=== PATIENT | male | born 1960 | race Caucasian/White ===

== ENCOUNTER → 2023-08-27 11:53 | Outpatient (REF) | payer SELFPAY | LOC: HWRAD 11:53 | PROVIDERS: ATTENDING PHYSICIAN Internal Medicine | DX: E78.5 Hyperlipidemia, unspecified (principal) | CPT/HCPCS: 75571 ==

== ENCOUNTER → 2023-10-10 13:38 | Outpatient (REF) | payer OTHER, SELFPAY | LOC: RCS 13:38 | PROVIDERS: ATTENDING PHYSICIAN Internal Medicine | DX: R93.1 Abnormal findings on diagnostic imaging of heart and coronary circulation (principal) | CPT/HCPCS: 93017; 93005; 93350 ==

== ENCOUNTER → 2023-10-25 10:16 | Outpatient (REF) | payer OTHER, SELFPAY | LOC: HWRAD 10:16 | PROVIDERS: ATTENDING PHYSICIAN Internal Medicine | DX: R93.1 Abnormal findings on diagnostic imaging of heart and coronary circulation (principal) | CPT/HCPCS: 71275; Q9967 ==

== ENCOUNTER 2024-04-07 01:07 | Inpatient (IN) | payer OTHER, SELFPAY ==
[2024-04-06] VITALS (9 sets, daily range): BP systolic 134–170; BP diastolic 75–108; BMI 23.1
--- NOTE | 2024-04-06 19:41 | ED.GENMED ---
History of Present Illness
General
Chief Complaint: Chest Pain
Source: patient
Exam Limitations: none
Time Seen by Provider: 04/06/24 19:26
History of Present Illness
History of Present Illness:
This is a 63 year old male that comes in with c/o upper abd pain. States that he has pain in the upper abd and into the sternum. States that he had 2 normal BM's today. States that his pain is a 5-7 and comes in waves. States that it is alike a
spasm. States that this started today around 1pm. States that he is nauseated. Denies any fever, chills, chest pain, SOB, vomiting, diarrhea, headache, dizziness, urinary, burning.
Past History
Past History
ED Past Medical History: Asthma, HTN and Hypercholesterolemia
ED Past Surgical History: Other (Nasal surgery)
Social History
Tobacco: Non-smoker
Alcohol: Occasional (States that he drinks Wine on weekends)
Personal:
Living: with family
Review of Systems
Review of Systems
All Other Systems: ROS reviewed and negative except as documented in HPI and ROS
Constitutional: Reports no symptoms; Denies fever or chills
EENT: Reports no symptoms
Respiratory: Reports no symptoms; Denies cough or trouble breathing
Cardiac: Reports no symptoms; Denies chest pain
ABD/GI: Reports abdominal pain and nausea; Denies vomiting or diarrhea
: Reports no symptoms; Denies dysuria, frequency or urgency
Musculoskeletal: Reports no symptoms
Skin: Reports no symptoms
Neurological: Reports no symptoms; Denies dizzy or headache
Psychiatric: Reports no symptoms
Phy Exam
General Physical Exam
General Presentation: mild distress
General age: appears stated age
General Skin: warm and dry
General Habitus: normal
General Mental: alert
General Hydration: dry mucous membranes
ENT Exam
ENT Exam: TM's normal, pharynx normal and neck supple
Eye Exam
Eye Exam: EOMI
Cardiovascular Exam
Cardiovascular Exam: regular rate/rhythm, no edema, no murmur and normal peripheral pulses
Pulmonary Exam
Pulmonary Exam: lungs clear, no respiratory distress, no rales, chest non tender, no crackles, no rhonchi, no wheezing and no cough
Gastrointestinal Exam
Gastrointestinal Exam: normal bowel sounds, soft, no organomegaly, no pulsatile mass, non distended and tender (Upper abd tenderness with palpation)
Musculoskeletal Exam
Musculoskeletal Exam: full ROM and no edema
Skin Exam
Skin Exam: normal color, warm/dry, no rash and no petechia
Psychiatric Exam
Psychiatric Exam: normal mood/affect
Scores
Heart Score for Chest Pain Patients
STEMI patient?: Not applicable
Course
Orders/Labs/Results
Orders:
Orders
04/06/24 18:46
EKG [Electrocardiogram (*1)] Urgent
Reason for Study: Chest Pain
EKG- Treatment ONCE
04/06/24 19:39
Ketorolac [Toradol] 30 mg IV NOW STA
Ondansetron Injectable [Zofran] 4 mg IV NOW STA
Pantoprazole [Protonix IV] 40 mg IV NOW STA
US Abdomen Complete/Upper Urgent
Comment:
Reason For Exam: Upper abd tenderness with palpation
04/06/24 19:40
0.9% Sodium Chloride 500 ml [Nss] 500 ml IV BOLUS
04/06/24 19:48
Complete Blood Count/With Diff Urgent
Comprehensive Metabolic Panel Urgent
Lipase Urgent
Troponin I Urgent
04/06/24 21:06
Sucralfate Suspension [Carafate Suspension] 1 gm PO NOW STA
04/06/24 21:20
CT Abd/pel W Iv And Oral Contr Urgent
Comment:
Reason For Exam: abd pain
0.9% Sodium Chloride 500 ml [Nss] 500 ml IV BOLUS
Iohexol [Omnipaque] See Protocol PO NOW STA
04/07/24 00:14
HYDROmorphone [Dilaudid] 1 mg IV NOW STA
04/07/24 00:23
Consult Surgery [SURGICAL CONSULT] Urgent
Consulting Provider: Jm Harry
Was physician already notified: Yes
04/07/24 00:26
Lactate Level [Lactic Acid] Urgent
04/07/24 00:37
Add On- LAB Urgent
Tests Added?: lactate
04/07/24 00:52
Gastrointestinal Tubes As Directed
Type: [place] sump
To suction?: Yes
Type of suction: Low intermittent
Irrigate tube?: Yes
Irrigant: Tap Water
Frequency: Q4H
Amount in mls: 30
Irrigation Directions: Irrigate Q4H and PRN
Abnormal Lab Results
04/06/24
19:48
WBC 14.4 H 10^3/uL
(4.8-10.8)
RBC 4.54 L 10^6/uL
(4.70-6.10)
MCH 31.3 H pg
(27.0-31.0)
Abs Immat Gran (auto) 0.1 H 10^3/uL
(0-0.05)
Absolute Neuts (auto) 10.9 H 10^3/uL
(1.4-6.5)
Absolute Monos (auto) 0.7 H 10^3/uL
(0.1-0.6)
Neutrophils % 75.9 H %
(42.2-75.2)
Lymphocytes % 16.1 L %
(20.5-51.1)
BUN 23 H mg/dl
(9-20)
Glucose 102 H mg/dl
(70-99)
04/06/24 19:48
04/06/24 19:48
Leukocytosis, Dehydration. Lipase normal at 199, Troponin <0.012, Lactic acid 0.7, Glucose slightly elevated.
Vital Signs
Initial and Last Documented VS:
Initial Vital Signs
Temp Pulse Resp BP Pulse Ox
98.1 F 81 16 168/108 100
04/06/24 18:53 04/06/24 18:53 04/06/24 18:53 04/06/24 18:53 04/06/24 18:53
Last Documented Vital Signs
Temp Pulse Resp BP Pulse Ox
98.3 F 62 17 153/84 99
04/06/24 21:15 04/06/24 23:15 04/06/24 23:15 04/06/24 23:01 04/06/24 23:15
MDM/Problems Addressed
Differential Diagnosis Includes:
pancreatitis, Gastritis, Gallbladder disease
MDM/Problems Addressed:
This is a 63 year old male that comes in with c/o upper abd pain that started at 1pm today. States that the pain comes in waves.
Will check labs. US and medicate for pain.
Back into see patient. Explained that his blood work shows that his WBC are elevated and he is slightly dehydrated. US is negative for any acute process. Patient is very tender with palpation and states that he is still a 5/10. Will get CT scan.
CT cont-of ischemic complications, suggest surgical consultation. Incidental findings: Gallbladder is unremarkable. Normal appendix extending posteriorly seen best on delayed series 301 axial image 62-59. NO renal or obstructing ureteral stones. No
hydronephrosis or hydroureter.
Back into see patient. Explained that he will be admitted as his CT shows that there is a SBO. This appears to be a closed loop obstruction. Will consult surgery and hospitalist notified.
Chronic conditions affecting care:
NA
Acute Exacerbation and/or Progression of Chronic Illness:
NA
*Radiology
Radiology exam reviewed: radiology read reviewed (US-Contracted gallbladder. No evidence for cholelithiasis or bile duct dilation. CT- night [facility]- Small bowel is moderately dilated at 3cm, two adjacent transition zones identified in a short
segment of small bowel in the right upper quadrant coronal images 15-18 raising suspicion for closed ), all reviewed NAD by ED Provider (CT cont-closed obstruction possibly secondary to complex adhesions. however no prior surgery per clinician. No
evidence for Meckel's diverticulum or internal hernia as an etiology. NO definitte underlying mass. The distal small bowel and large bowel are decompressed. There is mild stranding in the) and other (CT cont-Mesentery and free fluid, which may be
related to venous congestion. NO evidence of pneumatosis, free air, or wall thickening, although no definite signs of ischemic bowel, consider correlation with lactic acid level. This is suggestive of a closed loop obstruction which has a higher )
*Pulse Oximetry
Patient hypoxic: no
*EKG
Interpreted by ED Provider?: Yes
Heart Rate: 81
Rate: normal
Rhythm: sinus
[place]: normal axis
Interval: normal interval
QRS Pattern: normal QRS
Ischemia: no ischemia
*[place] Interpretation
Rate: normal
Heart Rate: 77
Rhythm: sinus
*Critical Care Note
Total Time (30-74mins, 75-104mins- exclusive of procedures): Not Applicable
ED Attending Note
-
Portions of this chart may have been created with voice recognition software.� Occasional wrong word or��sound alike� substitutions may have occurred due to the inherent limitations of voice recognition software.
Discharge Plan
Departure
Patient Disposition: Admit
Date of Disposition: 04/07/24
Time of Disposition: 00:22
Admit to: Med/Surg
Presentation/result/management discussed w/ accepting MD/DO: Hospitalist
Patient with high blood pressure during this ER visit?: Yes
Condition: Good
Covid-19: Not Applicable
Discharge Problem:
Small bowel obstruction with closed loop
Prescriptions:
No Action
esomeprazole magnesium [Nexium] 40 MG capsule,delayed release(DR/EC)
40 mg PO DAILY
losartan 25 MG tablet
25 mg PO DAILY
finasteride [Propecia] 1 MG tablet
1 mg PO DAILY
aspirin 81 mg Tablet,Chewable
81 mg PO DAILY
rosuvastatin 20 mg Tablet
20 mg PO DAILY
Referrals:
Gallito Hill DO [Family Provider] -
Interventions
Interventions:
*Risk Screen - Suicide Last Done: 04/06/24 18:53
*General Assessment Last Done: 04/06/24 19:45
*Neglect/Abuse Screening Last Done: 04/06/24 18:53
ED- Fall Risk Assessment Last Done: 04/06/24 19:45
*ED COVID-19 Vaccine History Last Done: 04/06/24 19:45
CX-Frnqqo-Smtddykjkf Assessment Last Done: 04/06/24 19:45
ED- Cardiac Assessment Last Done: 04/06/24 19:45
Discharge Date and Time
Print Language: SLOVENIAN
[2024-04-06 20:03] LABS: % Basophils 0.8 % (0-2); % Eosinophils 1.7 % (0-6); % Immature Granulocytes 0.5 % (0-0.5); % Lymphocytes 16.1 % (20.5-51.1); % Neutrophils 75.9 % (42.2-75.2); Absolute Basophils 0.1 10^3/uL (0-0.2); Absolute Eosinophils 0.2 10^3/uL (0-0.7); Absolute Immature Granulocytes 0.1 10^3/uL (0-0.05); Absolute Lymphocytes 2.3 10^3/uL (1.2-3.4); Absolute Monocytes 0.7 10^3/uL (0.1-0.6); Absolute Neutrophils 10.9 10^3/uL (1.4-6.5); Hematocrit 41.3 % (39.0-52.0); Hemoglobin 14.2 g/dL (13.0-18.0); Mean Corp Hgb Conc. 34.4 g/dL (33.0-37.0); Mean Corpuscular Hgb 31.3 pg (27.0-31.0); Mean Platelet Volume 9.4 fL (7.4-10.4); Nucleated Red Blood Cells % 0 % (-); Platelet Count 334 10^3/uL (130-400); Red Blood Cell Count 4.54 10^6/uL (4.70-6.10); Red Cell Dist. Width 13.4 % (11.5-14.5); White Blood Cell Count 14.4 10^3/uL (4.8-10.8)
[2024-04-06] MEDS: NSS 500 IV ×2 (20:08→21:39)
[2024-04-06] MEDS: ZOFRAN 4 MG IV (20:10)
[2024-04-06] MEDS: TORADOL 30 MG IV (20:13)
[2024-04-06] MEDS: PROTONIX IV 40 MG IV (20:14)
[2024-04-06 20:23] LABS: ALT (SGPT) 26 U/L (0-50); AST (SGOT) 33 U/L (17-59); Albumin 4.9 g/dl (3.5-5.0); Alkaline Phosphatase 71 U/L (38-126); Blood Urea Nitrogen 23 mg/dl (9-20); Calcium 10.2 mg/dl (8.4-10.2); Carbon Dioxide 25 mmol/L (22-30); Chloride 103 mmol/L (98-107); Glucose 102 mg/dl (70-99); Lipase 199 U/L (23-300); Potassium 4.3 mmol/L (3.5-5.1); Sodium 141 mmol/L (135-145); Total Bilirubin 0.4 mg/dl (0.2-1.3); Total Protein 7.9 g/dl (6.3-8.2); eGFR > 60.00
[2024-04-06 20:31] LABS: Troponin I < 0.012 ng/ml
[2024-04-06] MEDS: CARAFATE SUSPENSION 1 GM PO (21:30)
[2024-04-06] MEDS: OMNIPAQUE 50 ML PO (21:32)
[2024-04-07] VITALS (13 sets, daily range): BP systolic 113–163; BP diastolic 64–90; BMI 22.9
[2024-04-07] MEDS: DILAUDID 1 MG IV (00:34)
[2024-04-07 00:48] LABS: Lactic Acid 0.7 mmol/L (0.7-2.0)
--- NOTE | 2024-04-07 01:00 | HPS.HSE ---
Family Physician
-
Family Physician: Gallito Hill
Chief Complaint
-
Abd Pain
History of Present Illness
Patient is a 63y M with PMH significant for hypertension and dyslipidemia who presents to ED complaining of abdominal pain. Patient states that he was feeling well until the sudden onset of upper abdominal pain around 1 PM today. He states that
the pain gradually increased throughout the afternoon to a peak of 8/10 severity. He had nausea but no emesis. He states that he had a normal BM at 8:30 AM today and again around 1 when the pain began. He has had no stool or flatus since that
time.
Patient noted continued progression of his discomfort and presented to the ED for further evaluation and treatment.
He denies any fevers / chills. No chest pain or dyspnea. He denies any prior history of similar symptoms.
Medical History
Past Medical History
Past Medical History: Reports Other
Additional Past Medical History:
Hypertension
Dyslipidemia
Past Surgical History: Reports Other
Additional Past Surgical History:
Septoplasty
Social History
Tobacco: Non-smoker
Alcohol: Occasional
Drug: None
Personal:
Living: With Family
Family History
Family History: Other (Mother: Longevity / CHF Father: Lung Cancer)
Allergies / Home Medications
Allergies reflects when Allergies were last updated in [facility].
Home Medications with original date entered in [facility]
Allergy/Medication List:
Allergies
Allergy/AdvReac Type Severity Reaction Status Date / Time
No Known Allergies Allergy Verified 04/06/24 18:53
Home Medications
esomeprazole magnesium 40 mg capsule,delayed release (Nexium) 40 mg PO DAILY 05/15/12
finasteride 1 mg tablet (Propecia) 1 mg PO DAILY 05/15/12
losartan 25 mg tablet 25 mg PO DAILY 05/15/12
aspirin 81 mg chewable tablet 81 mg PO DAILY 04/07/24
rosuvastatin 20 mg tablet 20 mg PO DAILY 04/07/24
Review of Systems
-
History Source: Patient
A 12 point ROS was completed and negative except as noted: Yes
Constitutional: Denies Fever or Chills
Respiratory: Denies Cough or Trouble Breathing
Cardiac: Denies Chest Pain or Palpitations
Abdomen/GI: Reports Abdominal Pain and Nausea; Denies Vomiting, Diarrhea, Constipated or Bloody Stools
: Denies Dysuria or Flank Pain
Musculoskeletal: Denies Joint Pain or Edema
Neurological: Denies Dizzy or Headache
Psych: Denies Depression or Anxiety
Physical Exam
Vital Signs
Vital Signs
Temp Pulse Resp BP Pulse Ox
98.3 F 62 17 153/84 99
04/06/24 21:15 04/06/24 23:15 04/06/24 23:15 04/06/24 23:01 04/06/24 23:15
Physical Exam
General: Other (63y M in mild distress due to abdominal pain.)
HEENT: Moist mucous membranes and PERRLA
Respiratory: Clear; No Wheezes, Rales or Rhonchi
Cardiac: S1/S2 and Regular Rhythm; No Murmur
GI: Other (Somewhat firm diffusely, pos guarding. Bowel sounds are appreciated. Tenderness in the RUQ / epigastric regions primarily - but some tenderness appreciated diffusely. No rebound.)
Musculoskeletal: No Clubbing, No Cyanosis and No Edema
Neuro: AO x 3
Laboratory Results
-
04/06/24 19:48
04/06/24 19:48
Laboratory Results
Lactic Acid 0.7 mmol/L (0.7-2.0) 04/07/24 00:26
Total Bilirubin 0.4 mg/dl (0.2-1.3) 04/06/24 19:48
AST 33 U/L (17-59) 04/06/24 19:48
ALT 26 U/L (0-50) 04/06/24 19:48
Alkaline Phosphatase 71 U/L (38-126) 04/06/24 19:48
Troponin I < 0.012 ng/ml 04/06/24 19:48
Lipase 199 U/L (23-300) 04/06/24 19:48
Impression/Plan
-
A/P: Patient is a 63y M with PMH significant for hypertension who presents to ED complaining of sudden onset of abdominal pain.
SBO
- Admit for further evaluation and treatment.
- Patient with no prior abdominal surgical history and CT findings seem most c/w closed loop obstruction.
- Nausea but no vomiting. Continued pain - improved but not resolved with meds in the ED.
- NPO, IVF support, pain control and antiemetics.
- NG decompression.
- Surgery consulted for further evaluation.
- Suspect that patient may require surgical intervention based on symptoms / imaging results.
- Follow for any new / worsening symptoms.
Benign Hypertension
- Stable. BP mildly elevated in the ED - likely due to pain.
- Hold PO medications acutely.
GERD
- Stable. Continue PPI via IV route for now.
Dyslipidemia
- Stable. Hold ASA / statin. Can resume on discharge.
DVT Prophylaxis: SCDs
Code Status: Full
--- NOTE | 2024-04-07 02:07 | CON.CRS ---
Consultation
-
Performing Provider: Jm Harry MD
Reason for Consultation: Closed-loop small bowel obstruction
Medical History
-
History of Present Illness:
63-year-old male with PMH of HTN, HLD, asthma, calcium score of 965, who presents with 1 day of progressively worsening epigastric to substernal abdominal pain. This is never happened to him before. He started noticing the pain around 1 PM. He
tried to work his way through it, but it became progressively worse over the next 5 hours. This was associated with nausea, but no vomiting. He had 2 BMs in the morning, but has not passed any flatus or BMs since the pain started. He denies any
shortness of breath or urinary complaints. His last colonoscopy was 2 years ago and had 2 small polyps removed (report not available to me). While he has been in the ED, he feels like he has gotten more bloated. He received pain medicine and his
abdominal pain is better controlled.
In the ED, his WBC 14.4, Hb 14.2, Cr 1.1, lactate 0.7, CT scan with [facility] read showing small bowel obstruction associated with 2 transition points in the right upper quadrant, concerning for closed-loop obstruction.
Past Medical History
Past Medical History: Other (As above)
Past Surgical History: Other (Nasal surgery, denies history of abdominal surgery)
Social History
Tobacco: Non-Smoker
Alcohol: Occasional
Drug: None
Personal:
Family History
Family History: Other (Mother-CHF, father-lung cancer, sister-diverticulitis)
Allergies / Home Medications
Allergy/AdvReac Type Severity Reaction Status Date / Time
No Known Allergies Allergy Verified 04/06/24 18:53
�Medication �Instructions �Recorded �Confirmed �Type
esomeprazole magnesium 40 mg 40 mg PO DAILY 05/15/12 04/07/24 History
capsule,delayed release (Nexium)
finasteride 1 mg tablet (Propecia) 1 mg PO DAILY 05/15/12 04/07/24 History
losartan 25 mg tablet 25 mg PO DAILY 05/15/12 04/07/24 History
aspirin 81 mg chewable tablet 81 mg PO DAILY 04/07/24 04/07/24 History
rosuvastatin 20 mg tablet 20 mg PO DAILY 04/07/24 04/07/24 History
Review of Systems
-
A 10 point review of systems was completed, and was negative except as per HPI.
Physical Exam
Vital Signs
Temp 98.8 F 04/07/24 01:57
Pulse 69 04/07/24 02:00
Resp Rate 16 04/07/24 02:00
Blood pressure 113/72 04/07/24 02:00
SaO2 94 04/07/24 02:00
04/05/24 04/06/24 04/07/24
06:59 06:59 06:59
Actual Weight 71 kg
Body Mass Index (BMI) 23.1
Lab Results / Allergies
04/06/24 19:48
04/06/24 19:48
WBC 14.4 10^3/uL (4.8-10.8) H 04/06/24 19:48
Hgb 14.2 g/dL (13.0-18.0) 04/06/24 19:48
Hct 41.3 % (39.0-52.0) 04/06/24 19:48
Plt Count 334 10^3/uL (130-400) 04/06/24 19:48
Abs Immat Gran (auto) 0.1 10^3/uL (0-0.05) H 04/06/24 19:48
Neutrophils % 75.9 % (42.2-75.2) H 04/06/24 19:48
Allergy/AdvReac Type Severity Reaction Status Date / Time
No Known Allergies Allergy Verified 04/06/24 18:53
Physical Exam
General: Well Developed, Well Nourished and No Apparent Distress
HEENT: Normocephalic and Atraumatic
Respiratory: Non Labored Respirations
GI: Soft, Tender (Mildly diffusely tender, moderately tender towards the right upper/epigastric region, abdominal wall musculature tense but not rigid, no rebound) and Distended (Moderately distended with tympany)
Skin: Warm and Dry
Neuro: AO x 3
Assessment / Plan
-
63-year-old male with PMH of HTN, HLD, asthma, calcium score of 965, who presents with 1 day of progressively worsening epigastric to substernal abdominal pain associated with nausea, no vomiting, no flatus or BMs since the pain started, and has
never happened before. His last colonoscopy was 2 years ago and had 2 small polyps removed (report not available to me). While he has been in the ED, he feels like he has gotten more bloated.
In the ED, his WBC 14.4, Hb 14.2, Cr 1.1, lactate 0.7, CT scan with [facility] read showing small bowel obstruction associated with 2 transition points in the right upper quadrant, concerning for closed-loop obstruction.
�SBO, concerning for closed-loop
�No prior abdominal surgeries so this is unlikely related to an adhesive SBO; concern elevated for a mass causing the obstruction as opposed to other causes such as congenital bands; based on his clinical presentation, I am concerned for impending
ischemia and therefore recommend urgent surgery
�Explained the risks benefits and alternatives to the patient, including but not limited to urgent surgery and possible small bowel resection; I explained that nonoperative measures can be considered in patients with adhesive SBOs without signs of
threatened bowel; in patients without prior surgeries and with radiographic evidence of a closed-loop, nonoperative management is unlikely to resolve the issue and may lead to further ischemic damage
�All questions were answered and the patient understood; he agreed to proceed with surgery and the consent was signed
� Keep n.p.o.; NG tube placed in the ED; follow-up CXR
� Continue IVF
�Continue pain control
� Okay for DVT PPx with Lovenox
� We will send preop EKG, type and screen and coags
� Discussed with hospitalist and ED
[2024-04-07 02:10] LABS: PT 13.5 Sec (11.4-14.6)
[2024-04-07 02:11] LABS: APTT 24.9 Sec (23.4-35.0)
[2024-04-07] MEDS: HEPARIN 5000 UNITS SC (02:28)
--- NOTE | 2024-04-07 04:49 | W.IMMPOSTOP ---
Surgical Immed Post Op Note
-
Primary Surgeon: Jm Harry MD
Assisting Surgeon: None
Pre-op Diagnosis: Closed-loop small bowel obstruction
Post-op Diagnosis: Adhesive small bowel obstruction
Procedure Performed: Exploratory laparotomy, lysis of adhesive omental band, tap block
Anesthesia Type: General
Specimen / Cultures: None
Estimated Blood Loss: 15 mL
Complications: None
Operative Findings: Small upper midline incision with Bc wound retractor; eviscerated the obstructed loop of bowel with omentum and identified an omental band to the small bowel mesentery, causing the transition point; the band was tight, likely
completely obstructing; the bowel was dark pink, no concern for ischemia or necrosis; after band was freed, 1 to 2 cm of bowel at the transition point became vasocongested, but remained dark pink and peristalsing; ran the bowel from the ligament of
Treitz to the ligament of Treves and no other transition points or pathology was identified; injected 30 mL of 0.25% Marcaine with epi mixed with 0.3 mg of dexamethasone bilaterally in the transversus abdominis plane; began closing with 0 PDS from
each corner; laid Seprafilm under the fascial incision on the abdominal contents; closed fascia in a running fashion; irrigated and injected the remainder of the 30 mL of 0.25% Marcaine with epi mixed with 0.3 mg of dexamethasone around the
incision; closed the incision with 4 Monocryl and Dermabond; NG tube remains and Rosales removed
--- NOTE | 2024-04-07 04:58 | OR.RPT ---
Operative Report
Operative Report
DATE OF OPERATION: 04/07/2024
SURGEON: Jm Harry MD
PREOPERATIVE DIAGNOSIS: Closed-loop small bowel obstruction
POSTOPERATIVE DIAGNOSIS: Adhesive small bowel obstruction
OPERATION: Exploratory laparotomy, lysis of adhesive omental band, TAP block
ASSISTANTS:
1. None
ANESTHESIA: General
ESTIMATED BLOOD LOSS: 15 mL
UOP: 100 mL
IVF: 900 mL
FINDINGS:
1. Adhesive band from omentum to mesentery of mid jejunum causing a transition point across a loop of jejunum; bowel well-perfused
2. After lysis of adhesive band, bowel remained well- perfused
SPECIMENS:
1. None
DRAINS: None
COMPLICATIONS: No immediate complications.
INDICATIONS: The patient is a 63-year-old male who presents with 6 hours of worsening mid to epigastric abdominal pain associated with nausea and obstipation. His WBC was [address] scan showed concern of SBO with closed-loop in the right upper
quadrant. As he had never had abdominal surgery and clinically he had a complete obstruction, I recommended moving forward with surgery. The operation was discussed with the patient in detail, including risks, benefits and alternatives. My plan is
to explore the abdomen, identify the site of obstruction and do what is necessary to relieve the obstruction, such as lysis of adhesions or small bowel resection. If an adhesions is released, I will assess the bowel to see if it is healthy or if it
requires a bowel resection. Risks described included, but are not limited to, bleeding, infection, anastomotic leak or stricture (if anastomosis created), damage to nearby structures, need for a second surgery, possible ostomy and anesthetic risks.
The patient understood and agreed to proceed.
PROCEDURE IN DETAIL: The patient was taken to the operating room and placed on the operating table in supine position. Sequential compression devices were placed bilaterally. General anesthesia was then induced and the patient was intubated without
complication. Both arms were secured to the armboards in extended position. Ramesh catheter was placed with sterile technique. The abdomen was then shaved, prepped and draped in a sterile fashion. A time-out was then performed verifying the correct
patient, procedure, operative site, positioning, and special equipment. An NG tube was already in place. Preoperative Ancef and Flagyl and 5000 units of subQ heparin were given. A marking pen was used to baylee out the midline.
Using a 15 blade scalpel, a midline incision was made from 2 cm below the xiphoid to just above the umbilicus. This was taken down to the level of the fascia with Bovie electrocautery and hemostasis was assured. The linea alba was divided carefully
with Bovie electrocautery. Then 2 Kellys were used to grasp and elevate the peritoneum, which was sharply divided with Metzenbaum scissors, ensuring no peritoneal organs were in the vicinity. I extended the fascial incision to the length of the
skin incision. A large Bc wound protector was placed. The abdomen was explored. A palpable adhesive band was noted in the right upper quadrant. The band was directed towards the omentum. The bowel was eviscerated for closer evaluation. I
noted an omental band wrapping around a loop of jejunum, adherent to the mesentery of the jejunum at the mesenteric border of the bowel. This band was causing a transition point with proximally dilated bowel and collapsed distal bowel. The bowel
appeared well-perfused without any evidence of ischemia or necrosis. I placed a 3-0 Vicryl stitch a few centimeters from the band as a tag. I then eviscerated a portion of the transverse colon and omentum to confirm that this band was originating
from the omentum and no other location, which was confirmed. I divided the band using electrocautery. Once the band was released, the bowel remained well-perfused. There was no palpable mass at this point. I did note a dark pink appearance to
the bowel at the site where the band was, but the bowel was noted to be peristalsing and had palpable mesenteric pulses. I then ran the bowel from the ligament of Treitz to the ligament of Treves. Overall, the proximal bowel was only mildly
dilated. The entire length of the bowel had no evidence of ischemia or injury. Due to the location of my midline incision, the terminal end of the small bowel was unable to be eviscerated, but I was able to view the length of the bowel using
retractors and palpate the bowel up to the cecum. Therefore, I was not concerned for any additional small bowel pathology causing his symptoms. I removed the 3-0 Vicryl stitch tag. The site of obstruction was assessed closely once more and appeared
perfused.
I began closing using 0 PDS sutures starting at the corners. Prior to closure, I injected 15 mL of 0.25% Marcaine with epi mixed with 0.3 mg of dexamethasone in the transversus abdominis plane bilaterally under direct visualization. I also placed
Seprafilm under the fascial incision. Once the fascia was closed, I irrigated the subcutaneous space and assured hemostasis. I closed the skin using 4-0 Monocryl in a running subcuticular fashion and dressed with Dermabond.
At this point, the procedure was complete. The patient was awoken and extubated without complication. The ramesh was removed. All needle, sponge and instrument counts were reported as correct. The patient tolerated the procedure well and was
transferred to the recovery room in stable condition with the nasogastric tube in place.
DICTATED BY: Jm Harry MD
[2024-04-07] MEDS: TORADOL 15 MG IV ×4 (05:57→22:31)
[2024-04-07] MEDS: D5LR 1000 IV ×2 (05:57→22:31)
--- NOTE | 2024-04-07 07:34 | W.PN.HOSP.TC ---
Today's Communication/Plan
-
Surgery this morning
Patient doing fine
Continue DVT prophylaxis
NPO
NG tube
Assessment / Plan
Assessment / Plan
Physical Exam
General: Not in acute distress
HEENT: Moist mucous membranes
Respiratory: Clear to Auscultation Bilaterally
Cardiac: S1/S2 and Regular Rhythm
GI: Surgical sutures C/D/I. Mild tenderness to palpation. Hypoactive bowel sounds.
Musculoskeletal: No Cyanosis and No Edema
Neuro: AO x 3
Assessment/Plan
Patient is a 63y M with PMH significant for hypertension who presents to ED complaining of sudden onset of abdominal pain.
Closed-loop small bowel obstruction status post exploratory laparotomy, lysis of adhesive omental band, tap block on 04/07/24
Nausea- RESOLVED
- Patient with no prior abdominal surgical history and CT findings seem most c/w closed loop obstruction.
- NPO, IVF support, pain control and antiemetics.
- NG decompression.
- Surgery consulted, performed surgery shortly after admission given concern for ischemia
Benign Hypertension
- Stable. BP mildly elevated in the ED - likely due to pain.
- Hold PO medications acutely.
GERD
- Stable. Continue PPI via IV route for now.
Dyslipidemia
- Stable. Hold ASA / statin. Can resume on discharge.
DVT Prophylaxis: Lovenox and SCDs.
Code Status: Full
This is a non-billable note.
Anticipated Discharge: > 48 hours
Subjective/Interval History
-
Date of Service: April 07, 2024
Patient was seen and examined. He reported feeling fine, except for some abdominal soreness as expected from surgery.
Objective Data
-
Labs:
Laboratory Results
04/06/24 04/07/24 04/07/24
19:48 01:53 07:29
WBC 14.4 H Pending
Hgb 14.2 Pending
Hct 41.3 Pending
Plt Count 334 Pending
PT 13.5
INR 1.00
APTT 24.9
Sodium 141 Pending
Potassium 4.3 Pending
Chloride 103 Pending
Carbon Dioxide 25 Pending
BUN 23 H Pending
Creatinine 1.1 Pending
Glucose 102 H Pending
Calcium 10.2 Pending
Total Bilirubin 0.4
AST 33
ALT 26
Alkaline Phosphatase 71
Vital Signs:
Vital Signs
Temp Pulse Resp BP Pulse Ox
97.7 F 93 22 143/74 97
04/07/24 06:30 04/07/24 06:30 04/07/24 06:30 04/07/24 06:30 04/07/24 06:47
I&O
04/06/24 04/07/24 04/08/24
06:59 06:59 06:59
Intake Total 100 / 100
Output Total 5 / 5
Balance 95 / 95
[2024-04-07 07:57] LABS: Lactic Acid 0.9 mmol/L (0.7-2.0)
[2024-04-07 08:45] LABS: Hematocrit 38.1 % (39.0-52.0); Mean Corp Hgb Conc. 34.1 g/dL (33.0-37.0); Mean Corpuscular Hgb 32.2 pg (27.0-31.0); Mean Corpuscular Volume 94.3 fL (80.0-94.0); Mean Platelet Volume 10.4 fL (7.4-10.4); Platelet Count 310 10^3/uL (130-400); Red Blood Cell Count 4.04 10^6/uL (4.70-6.10); Red Cell Dist. Width 13.6 % (11.5-14.5); White Blood Cell Count 19.6 10^3/uL (4.8-10.8)
[2024-04-07 09:27] LABS: Blood Urea Nitrogen 19 mg/dl (9-20); Calcium 9.1 mg/dl (8.4-10.2); Carbon Dioxide 23 mmol/L (22-30); Chloride 102 mmol/L (98-107); Estimated Creatinine Clearance 85 ml/min; Glucose 148 mg/dl (70-99); Magnesium 1.9 mg/dl (1.6-2.3); Potassium 3.8 mmol/L (3.5-5.1); Sodium 140 mmol/L (135-145); eGFR > 60.00
[2024-04-07 10:10] LABS: Hepatitis C Antibody Negative (Negative)
[2024-04-07] MEDS: PROTONIX IV 40 MG IV (10:31)
--- NOTE | 2024-04-07 12:12 | CM ---
Adm dx - SBO
Met with pt and his at bedside
Pt reports he lives with his and his mother in a multi-level home; 3 steps to enter, 15 steps to 2nd fl. Full bath on FF. 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
Independent, self-employed, drives
DME - rolling walker, single point cane
SNF/HH - no past hx
Has ride at discharge
PCP - [facility]
Pharm - [facility]
Plan - anticipate home no needs vs with VN when medically ready
--- NOTE | 2024-04-07 14:31 | PTCARENOTE ---
Patient OOb to chair with min assist. Patient ambulated in halls with steady gait, no c/o abdominal pain at present. Patient c/o sore throat from NGT, ice chips given.
[2024-04-07] MEDS: LOVENOX 40 MG SC (17:36)
--- NOTE | 2024-04-07 23:06 | PTCARENOTE ---
@ this time pt was observed to have chills and sweats VSS temp 98.5. Pt reported he has been sleeping and doesn't know when it began. Pt assisted with change of clothes and assisted with repositioning for comfort. Denies SOB or increase in any pain,
reports passing flatus, NG tube patent and flushed without difficulty plan of care ongoing callbell within reach
--- NOTE | 2024-04-08 02:44 | PTCARENOTE ---
Pt resting comfortably denies any further fever/chills/sweats.
[2024-04-08 04:00] VITALS: BP 140/80
[2024-04-08 04:38] VITALS: BMI 23.0
[2024-04-08] MEDS: TORADOL 15 MG IV ×4 (05:19→23:09)
[2024-04-08 05:30] LABS: % Basophils 0.4 % (0-2); % Eosinophils 0.4 % (0-6); % Immature Granulocytes 0.4 % (0-0.5); % Lymphocytes 16.3 % (20.5-51.1); % Monocytes 7.7 % (1.7-9.3); % Neutrophils 74.8 % (42.2-75.2); Absolute Basophils 0.1 10^3/uL (0-0.2); Absolute Eosinophils 0.1 10^3/uL (0-0.7); Absolute Immature Granulocytes 0.1 10^3/uL (0-0.05); Absolute Lymphocytes 2.2 10^3/uL (1.2-3.4); Absolute Monocytes 1.1 10^3/uL (0.1-0.6); Absolute Neutrophils 10.3 10^3/uL (1.4-6.5); Hematocrit 34.2 % (39.0-52.0); Hemoglobin 11.6 g/dL (13.0-18.0); Mean Corp Hgb Conc. 33.9 g/dL (33.0-37.0); Mean Corpuscular Hgb 32.1 pg (27.0-31.0); Mean Corpuscular Volume 94.7 fL (80.0-94.0); Mean Platelet Volume 10.4 fL (7.4-10.4); Nucleated Red Blood Cells % 0.1 % (-); Platelet Count 289 10^3/uL (130-400); Red Blood Cell Count 3.61 10^6/uL (4.70-6.10); Red Cell Dist. Width 13.7 % (11.5-14.5); White Blood Cell Count 13.8 10^3/uL (4.8-10.8)
[2024-04-08 05:48] LABS: Blood Urea Nitrogen 18 mg/dl (9-20); Calcium 8.9 mg/dl (8.4-10.2); Carbon Dioxide 29 mmol/L (22-30); Chloride 105 mmol/L (98-107); Estimated Creatinine Clearance 85 ml/min; Glucose 109 mg/dl (70-99); Magnesium 2.2 mg/dl (1.6-2.3); Potassium 4.1 mmol/L (3.5-5.1); Sodium 142 mmol/L (135-145); eGFR > 60.00
[2024-04-08 07:26] VITALS: BP 128/70
--- NOTE | 2024-04-08 07:54 | W.PN.HOSP.TC ---
Today's Communication/Plan
-
Continue NPO, IV fluids, NG tube
Assessment / Plan
Assessment / Plan
Physical Exam
General: Not in acute distress
HEENT: Moist mucous membranes
Respiratory: Clear to Auscultation Bilaterally
Cardiac: S1/S2 and Regular Rhythm
GI: Surgical sutures C/D/I. Mild tenderness to palpation. Hypoactive bowel sounds.
Musculoskeletal: No Cyanosis and No Edema
Neuro: AO x 3
Assessment/Plan
Patient is a 63y M with PMH significant for hypertension who presents to ED complaining of sudden onset of abdominal pain.
Closed-loop small bowel obstruction status post exploratory laparotomy, lysis of adhesive omental band, tap block on 04/07/24
Nausea- RESOLVED
- Patient with no prior abdominal surgical history and CT findings seem most c/w closed loop obstruction.
- NPO, IV fluids, pain control and antiemetics.
- NG decompression.
- Surgery consulted, performed surgery shortly after admission given concern for ischemia
Chills/Sweats - RESOLVED
- Brief episode overnight
- No signs or symptoms of pneumonia/UTI
- Continue to monitor
Benign Hypertension
- Stable. BP mildly elevated in the ED - likely due to pain.
- Hold PO medications acutely.
GERD
- Stable. Continue PPI via IV route for now.
Dyslipidemia
- Stable. Hold ASA / statin. Can resume on discharge.
DVT Prophylaxis: Lovenox and SCDs.
Code Status: Full Code
Anticipated Discharge: > 48 hours
Subjective/Interval History
-
Date of Service: April 08, 2024
Patient was seen and examined. Overnight, he had some chills and sweats which resolved. No fever.
Objective Data
-
Labs:
Laboratory Results
04/08/24
04:41
WBC 13.8 H
Hgb 11.6 L
Hct 34.2 L
Plt Count 289
Sodium 142
Potassium 4.1
Chloride 105
Carbon Dioxide 29
BUN 18
Creatinine 0.9
Glucose 109 H
Calcium 8.9
Vital Signs:
Vital Signs
Temp Pulse Resp BP Pulse Ox
98.5 F 79 20 140/80 98
04/08/24 04:00 04/08/24 04:00 04/08/24 04:00 04/08/24 04:00 04/08/24 04:00
I&O
04/07/24 04/08/24 04/09/24
06:59 06:59 06:59
Intake Total 100 / 100 1470 / 1470
Output Total / 1950 / 1950
Balance 95 / 95 -480 / -480
[2024-04-08] MEDS: D5LR 1000 IV ×2 (08:55→17:47)
[2024-04-08] MEDS: PROTONIX IV 40 MG IV (08:56)
[2024-04-08] MEDS: NSS (PRESERVATIVE FREE) 10 ML IV (08:56)
--- NOTE | 2024-04-08 10:30 | W.PN.CRS1 ---
Today's Communication / Plan
-
continue NGT/IVFs today
Assessment/Plan
-
POD#1 Exploratory laparotomy, lysis of adhesive omental band, tap block
WBC: 13.8 (19.6), Hgb 11.6 (13.0)
-Vitals normal
-Continue NGT today with IVFs
-OOB
-Lovenox for DVT prophylaxis, TEDs/SCDs in place
-Holding po meds for now
-OR pathology pending
-Pain medication: Toradol standing, Dilaudid PRN
Subjective Data
Subjective Data
Date of Service: April 08, 2024
Patient states he feels 'okay'. He has flatus. He is urinating. He has been walking the halls.
Objective Data
-
Vital Signs
Temp Pulse Resp BP Pulse Ox
97.7 F 74 16 128/70 98
04/08/24 07:26 04/08/24 07:26 04/08/24 07:26 04/08/24 07:26 04/08/24 07:26
Intake & Output
04/07/24 04/08/24 04/09/24
06:59 06:59 06:59
Intake Total 100 / 100 1470 / 1470
Output Total 5 / 5 1950 / 1950
Balance 95 / 95 -480 / -480
Intake:
Oral fluids 180 / 180
IV fluids (Total) 100 / 100 1200 / 1200
Normosol 100 / 100
Amount instilled into GI Tube ( 0 / 0 90 / 90
Total)
[place] Sump 0 / 0 90 / 90
Output:
Gastrointestinal tube output ( 5 / 5 300 / 300
Total)
[place] Sump 5 / 5 300 / 300
Urine, Voided 1650 / 1650
Other:
Number of approximated MODERATE 2
amounts of urine
Lab Results
04/08/24 04:41
04/08/24 04:41
Physical Exam
-
General: No Acute Distress and AOx3
Abdomen: Soft, Non Distended and Non Tender
Skin: Warm and Dry
Incision: Clear, Dry, Intact
[2024-04-08 11:21] VITALS: BP 146/84
--- NOTE | 2024-04-08 14:35 | CM ---
Chart reviewed
Continue NGT, IVF's
Pt ambulating in burgos
CM will cont to follow for discharge needs
Plan - anticipate home no needs
[2024-04-08 15:36] VITALS: BP 147/84
[2024-04-08] MEDS: LOVENOX 40 MG SC (17:44)
[2024-04-08 19:38] VITALS: BP 153/83
[2024-04-08 23:13] VITALS: BP 149/82
[2024-04-09 04:00] VITALS: BP 142/86
[2024-04-09] MEDS: TORADOL 15 MG IV ×4 (04:18→22:21)
[2024-04-09 05:35] VITALS: BMI 22.8
[2024-04-09 05:45] LABS: % Basophils 0.9 % (0-2); % Eosinophils 2.8 % (0-6); % Immature Granulocytes 0.5 % (0-0.5); % Lymphocytes 38.3 % (20.5-51.1); % Neutrophils 49.5 % (42.2-75.2); Absolute Basophils 0.1 10^3/uL (0-0.2); Absolute Eosinophils 0.3 10^3/uL (0-0.7); Absolute Lymphocytes 3.4 10^3/uL (1.2-3.4); Absolute Monocytes 0.7 10^3/uL (0.1-0.6); Absolute Neutrophils 4.4 10^3/uL (1.4-6.5); Hematocrit 37.3 % (39.0-52.0); Hemoglobin 11.8 g/dL (13.0-18.0); Mean Corp Hgb Conc. 31.6 g/dL (33.0-37.0); Mean Corpuscular Hgb 31.1 pg (27.0-31.0); Mean Corpuscular Volume 98.4 fL (80.0-94.0); Mean Platelet Volume 10.2 fL (7.4-10.4); Nucleated Red Blood Cells % 0 % (-); Platelet Count 328 10^3/uL (130-400); Red Blood Cell Count 3.79 10^6/uL (4.70-6.10); Red Cell Dist. Width 13.8 % (11.5-14.5); White Blood Cell Count 8.8 10^3/uL (4.8-10.8)
[2024-04-09 06:03] LABS: Blood Urea Nitrogen 14 mg/dl (9-20); Calcium 9.2 mg/dl (8.4-10.2); Carbon Dioxide 30 mmol/L (22-30); Chloride 103 mmol/L (98-107); Estimated Creatinine Clearance 84 ml/min; Glucose 80 mg/dl (70-99); Potassium 4.2 mmol/L (3.5-5.1); Sodium 144 mmol/L (135-145); eGFR > 60.00
[2024-04-09] MEDS: D5LR 1000 IV ×2 (06:05→16:30)
--- NOTE | 2024-04-09 07:27 | W.PN.HOSP.TC ---
Today's Communication/Plan
-
Clear Liquids Diet
Appreciate Surgery
Assessment / Plan
Assessment / Plan
Physical Exam
General: Not in acute distress
HEENT: Moist mucous membranes
Respiratory: Clear to Auscultation Bilaterally
Cardiac: S1/S2 and Regular Rhythm
GI: Surgical sutures C/D/I. Mild tenderness to palpation. Bowel sounds present.
Musculoskeletal: No Cyanosis and No Edema
Neuro: AO x 3
Assessment/Plan
Patient is a 63 y/o male with past medical history significant for hypertension who presents to ED complaining of sudden onset of abdominal pain.
Closed-loop small bowel obstruction status post exploratory laparotomy, lysis of adhesive omental band, tap block on 04/07/24
Nausea- RESOLVED
- Patient with no prior abdominal surgical history and CT findings seem most c/w closed loop obstruction.
- NPO advanced to clear liquids, IV fluids, pain control and antiemetics.
- NG decompression and removal as per surgery
- Surgery consulted, performed surgery shortly after admission given concern for ischemia
Chills/Sweats - RESOLVED
- Brief episode overnight 04/07 to 04/08
- No signs or symptoms of pneumonia/UTI
- Continue to monitor
Benign Hypertension
- Stable. BP mildly elevated in the ED - likely due to pain.
- Hold PO medications acutely.
GERD
- Stable. Continue PPI via IV route for now.
Dyslipidemia
- Stable. Hold ASA / statin. Can resume on discharge.
DVT Prophylaxis: Lovenox and SCDs.
Code Status: Full Code
Anticipated Discharge: 24 - 48 hours
Subjective/Interval History
-
Date of Service: April 09, 2024
Patient was seen and examined. He denied any complaints or symptoms overnight.
Objective Data
-
Labs:
Laboratory Results
04/09/24
04:52
WBC 8.8
Hgb 11.8 L
Hct 37.3 L
Plt Count 328
Sodium 144
Potassium 4.2
Chloride 103
Carbon Dioxide 30
BUN 14
Creatinine 0.9
Glucose 80
Calcium 9.2
Vital Signs:
Vital Signs
Temp Pulse Resp BP Pulse Ox
98.0 F 69 18 142/86 98
04/09/24 04:00 04/09/24 04:00 04/09/24 04:00 04/09/24 04:00 04/09/24 04:00
I&O
04/08/24 04/09/24 04/10/24
06:59 06:59 06:59
Intake Total 1470 / 1470 2700 / 2700
Output Total 1950 / 1950 600 / 600
Balance -480 / -480 2099 / 2099
[2024-04-09 07:30] VITALS: BP 144/85
[2024-04-09] MEDS: NSS (PRESERVATIVE FREE) 10 ML IV (08:45)
[2024-04-09] MEDS: PROTONIX IV 40 MG IV (08:45)
[2024-04-09] MEDS: D5LR IV (08:56)
--- NOTE | 2024-04-09 10:14 | W.PN.CRS1 ---
Today's Communication / Plan
-
NG tube clamping trial
Assessment/Plan
-
POD#2 Exploratory laparotomy, lysis of adhesive omental band, tap block
WBC: 8.8 (13.8), Hgb 11.8 (11.6)
-Vitals normal
-NGT clamping trial
-Clears if NG tube removed
-OOB
-Lovenox for DVT prophylaxis, TEDs/SCDs in place
-Holding po meds for now
-OR pathology pending
-Pain medication: Toradol standing, Dilaudid PRN
Subjective Data
Subjective Data
Date of Service: April 09, 2024
Patient states he feels well today. He has been walking around. He has gas. He is very hungry. His pain is controlled.
Objective Data
-
Vital Signs
Temp Pulse Resp BP Pulse Ox
98.4 F 65 18 144/85 97
04/09/24 07:30 04/09/24 07:30 04/09/24 07:30 04/09/24 07:30 04/09/24 08:00
Intake & Output
04/08/24 04/09/24 04/10/24
06:59 06:59 06:59
Intake Total 1470 / 1470 2700 / 2700
Output Total 1950 / 1950 600 / 600
Balance -480 / -480 2100 / 2100
Intake:
Oral fluids 180 / 180 0 / 0
IV fluids (Total) 1200 / 1200 2400 / 2400
IV piggybacks 0 / 0
Amount instilled into GI Tube ( 90 / 90 300 / 300
Total)
[place] Sump 90 / 90 300 / 300
Output:
Gastrointestinal tube output ( 300 / 300 300 / 300
Total)
[place] Sump 300 / 300 300 / 300
Urine, Voided 1650 / 1650 300 / 300
Other:
Number of approximated MODERATE 2
amounts of urine
Number of approximated LARGE 2
amounts of urine
Lab Results
04/09/24 04:52
04/09/24 04:52
Physical Exam
-
General: No Acute Distress and AOx3
Abdomen: Soft, Non Distended and Non Tender
Skin: Warm and Dry
Incision: Clear, Dry, Intact
[2024-04-09 11:30] VITALS: BP 159/76
--- NOTE | 2024-04-09 12:13 | CM ---
Chart reviewed
NGT clamped today
Poss clears today
Ambulating in burgos
CM remains available for discharge needs
Plan - anticipate home no needs
--- NOTE | 2024-04-09 13:12 | PTCARENOTE ---
NGT removed, patient tolerated well. Advanced to clear liquid diet. Care ongoing.
[2024-04-09 15:30] VITALS: BP 140/84
--- NOTE | 2024-04-09 15:44 | PN.CDI ---
CDI
- -
CDI:
Physician Documentation Request
Admit Date: 04/07/24 01:07
Dear Doctor Milena,
Clinical Indicators:
Patient admitted with closed-loop small bowel obstruction; s/p exploratory laparotomy, lysis of adhesive omental band 04/07.
WBC trend:
04/06/24 04/07/24 04/08/24
19:48 07:29 04:41
WBC 14.4 H 19.6 H 13.8 H
HR trend:
04/07/24
04:46 04/07/24
05:00 04/07/24
05:15
Pulse 100 93 93
04/07/24
06:30 04/07/24
07:34 04/07/24
11:30
Pulse 93 90 94
Please clarify which most accurately describes the patient:
SIRS due to a non-infectious source (please indicate the known or suspected etiology)
Criteria includes:
Fever > 100.4 degrees F or hypothermia < 96.8 degrees F
Leukocytosis - WBC > 12,000 or leukopenia, WBC < 4,000 or > 10% bands
Tachycardia - > 90 beats per minute
Tachypnea - RR > 20 breaths per minute or PaCO2 < 32 mmHg
Source: Merck Manual 2013
Elevated WBC/Tachycardia only
Other
Use of terms such as suspected, likely, concern for, or probable (associated with a specific diagnosis that is being evaluated, monitored, or treated as if it exists) are acceptable and can be coded in the inpatient setting, when documented at the
time of discharge.
Thank you,
Shruti Brown RN BSN
CDI Specialist
available via tiger text
Please use your independent medical judgment in providing your response.
--- NOTE | 2024-04-09 15:56 | PN.CDI ---
CDI
- -
CDI:
Physician Documentation Request
Admit Date: 04/07/24 01:07
Dear Doctor Milena,
Clinical Indicators:
Patient admitted with closed-loop small bowel obstruction; s/p exploratory laparotomy, lysis of adhesive omental band 04/07.
Anesthesia Report: EBL 15ml IVF [address] 5LR @ 100 ml/hr
Hgb/Hct trend:
04/06/24 04/08/24 04/09/24
19:48 04:41 04:52
Hgb 14.2 11.6 L 11.8 L
Hct 41.3 34.2 L 37.3 L
Based on the above, could you clarify in the progress notes, the appropriate diagnosis, if significant, that supports the above abnormalities and additional evaluation, monitoring and/or treatment rendered:
Anemia, multifactorial due to acute blood loss and hemodilution
Anemia due to hemodilution only
Abnormal lab values, clinically insignificant
Other
Use of terms such as suspected, likely, concern for, or probable (associated with a specific diagnosis that is being evaluated, monitored, or treated as if it exists) are acceptable and can be coded in the inpatient setting, when documented at the
time of discharge.
Thank you,
Shruti Brown RN BSN
CDI Specialist
available via tiger text
Please use your independent medical judgment in providing your response.
[2024-04-09] MEDS: LOVENOX 40 MG SC (17:29)
[2024-04-09 19:42] VITALS: BP 120/63
[2024-04-09 23:47] VITALS: BP 143/82
[2024-04-10 03:37] VITALS: BP 128/79
[2024-04-10] MEDS: TORADOL 15 MG IV ×4 (05:06→22:22)
[2024-04-10 06:38] LABS: % Basophils 0.9 % (0-2); % Eosinophils 4.5 % (0-6); % Immature Granulocytes 0.3 % (0-0.5); % Lymphocytes 32.5 % (20.5-51.1); % Monocytes 7.2 % (1.7-9.3); % Neutrophils 54.6 % (42.2-75.2); Absolute Basophils 0.1 10^3/uL (0-0.2); Absolute Eosinophils 0.3 10^3/uL (0-0.7); Absolute Lymphocytes 2.5 10^3/uL (1.2-3.4); Absolute Monocytes 0.5 10^3/uL (0.1-0.6); Absolute Neutrophils 4.1 10^3/uL (1.4-6.5); Hematocrit 34.6 % (39.0-52.0); Hemoglobin 11.8 g/dL (13.0-18.0); Mean Corp Hgb Conc. 34.1 g/dL (33.0-37.0); Mean Corpuscular Hgb 32.4 pg (27.0-31.0); Mean Corpuscular Volume 95.1 fL (80.0-94.0); Mean Platelet Volume 10.5 fL (7.4-10.4); Nucleated Red Blood Cells % 0 % (-); Platelet Count 319 10^3/uL (130-400); Red Blood Cell Count 3.64 10^6/uL (4.70-6.10); Red Cell Dist. Width 13.2 % (11.5-14.5); White Blood Cell Count 7.5 10^3/uL (4.8-10.8)
[2024-04-10 06:56] LABS: Blood Urea Nitrogen 16 mg/dl (9-20); Calcium 9.2 mg/dl (8.4-10.2); Carbon Dioxide 30 mmol/L (22-30); Chloride 103 mmol/L (98-107); Estimated Creatinine Clearance 95 ml/min; Glucose 88 mg/dl (70-99); Sodium 142 mmol/L (135-145); eGFR > 60.00
[2024-04-10 07:00] VITALS: BP 144/76
--- NOTE | 2024-04-10 08:16 | W.PN.CRS1 ---
Today's Communication / Plan
-
As below
Assessment/Plan
-
63-year-old male with PMH of HTN, HLD, asthma, calcium score of 965, who presents with 1 day of progressively worsening epigastric to substernal abdominal pain associated with nausea, no vomiting, no flatus or BMs since the pain started, and has
never happened before. His last colonoscopy was 2 years ago and had 2 small polyps removed (report not available to me). CT showing concerning for SBO due to closed loop obstruction
POD 3 exlap, LETI of omental band
AFVSS
WBC 7.5 from 8.8, Hb 11.8 from 11.8, creatinine 0.8
�Advance to regular diet; instructed to go slow and take small bites
�Continue pain control toradol, dilaudid PRN
�DVT PPx with Lovenox
� OOB/IS
� Appreciate hospitalist
Subjective Data
Subjective Data
Date of Service: April 10, 2024
No overnight events.
Pain controlled.
Denies nausea/vomiting. Tolerating diet.
+flatus -BMs +voiding
Pt is OOB.
Objective Data
-
Vital Signs
Temp Pulse Resp BP Pulse Ox
97.9 F 60 18 128/79 95
04/10/24 03:37 04/10/24 03:37 04/10/24 03:37 04/10/24 03:37 04/10/24 03:37
Intake & Output
04/09/24 04/10/24 04/11/24
06:59 06:59 06:59
Intake Total 2700 / 2700 900 / 900
Output Total 600 / 600
Balance 2100 / 2100 900 / 900
Intake:
Oral fluids 0 / 0 600 / 600
IV fluids (Total) 2400 / 2400 300 / 300
IV piggybacks 0 / 0
Amount instilled into GI Tube ( 300 / 300
Total)
[place] Sump 300 / 300
Output:
Gastrointestinal tube output ( 300 / 300
Total)
[place] Sump 300 / 300
Urine, Voided 300 / 300
Other:
Number of approximated MODERATE 2
amounts of urine
Number of approximated LARGE 2
amounts of urine
Lab Results
04/10/24 04:58
04/10/24 04:58
Physical Exam
-
General: No Acute Distress and AOx3
HEENT: Grossly Normal
Abdomen: Soft, Non Distended (None tympanitic), Tender (Appropriately tender near incision), No Guarding and No Rebound
Skin: Warm and Dry
[2024-04-10] MEDS: NSS (PRESERVATIVE FREE) 10 ML IV (08:25)
[2024-04-10] MEDS: PROTONIX IV 40 MG IV (08:25)
[2024-04-10 11:00] VITALS: BP 122/66
--- NOTE | 2024-04-10 11:34 | CM ---
Chart reviewed. Met with pt
Diet advanced - rory thus far
Ambulating in room and hallway
CM remains available for discharge needs
Plan - anticipate home no needs
[2024-04-10 15:00] VITALS: BP 161/89
--- NOTE | 2024-04-10 16:21 | W.PN.HOSP.TC ---
Today's Communication/Plan
-
Continue regular diet slowly
Appreciate surgery
Assessment / Plan
Assessment / Plan
Physical Exam
General: Not in acute distress
HEENT: Moist mucous membranes
Respiratory: Clear to Auscultation Bilaterally
Cardiac: S1/S2 and Regular Rhythm
GI: Surgical sutures C/D/I. Mild tenderness to palpation. Bowel sounds present.
Musculoskeletal: No Cyanosis and No Edema
Neuro: AO x 3
Assessment/Plan
Patient is a 63 y/o male with past medical history significant for hypertension who presents to ED complaining of sudden onset of abdominal pain.
Closed-loop small bowel obstruction status post exploratory laparotomy, lysis of adhesive omental band, tap block on 04/07/24
Elevated WBC/Tachycardia from recent surgery, pain and bowel obstruction
Nausea- RESOLVED
- Patient with no prior abdominal surgical history and CT findings seem most c/w closed loop obstruction.
- Diet advanced to regular
- NG tube discontinued on 04/09/24
- Surgery consulted, performed surgery shortly after admission given concern for ischemia
Anemia, multifactorial due to acute blood loss and hemodilution
Chills/Sweats - RESOLVED
- Brief episode overnight 04/07 to 04/08; no further concerning signs or symptoms
- No signs or symptoms of pneumonia/UTI
- Continue to monitor
Benign Hypertension
- Stable. BP mildly elevated in the ED - likely due to pain.
- Hold PO medications acutely.
GERD
- Stable. Continue PPI via IV route for now.
Dyslipidemia
- Stable. Hold ASA / statin. Can resume on discharge.
DVT Prophylaxis: Lovenox and SCDs.
Code Status: Full Code
Anticipated Discharge: 24 - 48 hours
Subjective/Interval History
-
Date of Service: April 10, 2024
Patient was seen and examined. He reported he was doing pretty good, tolerating his diet, passing gas.
Objective Data
-
Labs:
Laboratory Results
04/10/24
04:58
WBC 7.5
Hgb 11.8 L
Hct 34.6 L
Plt Count 319
Sodium 142
Potassium 4.0
Chloride 103
Carbon Dioxide 30
BUN 16
Creatinine 0.8
Glucose 88
Calcium 9.2
Vital Signs:
Vital Signs
Temp Pulse Resp BP Pulse Ox
97.9 F 70 18 161/89 97
04/10/24 15:00 04/10/24 15:00 04/10/24 15:00 04/10/24 15:00 04/10/24 15:00
I&O
04/09/24 04/10/24 04/11/24
06:59 06:59 06:59
Intake Total 2700 / 2700 900 / 900
Output Total 600 / 600
Balance 2100 / 2100 900 / 900
[2024-04-10] MEDS: LOVENOX 40 MG SC (17:07)
[2024-04-10 23:07] VITALS: BP 133/80
[2024-04-11] MEDS: TORADOL 15 MG IV ×2 (05:40→10:41)
[2024-04-11 05:44] VITALS: BMI 22.5
[2024-04-11 05:49] LABS: % Basophils 1.1 % (0-2); % Eosinophils 4.1 % (0-6); % Immature Granulocytes 0.3 % (0-0.5); % Lymphocytes 33.4 % (20.5-51.1); % Monocytes 7.7 % (1.7-9.3); % Neutrophils 53.4 % (42.2-75.2); Absolute Basophils 0.1 10^3/uL (0-0.2); Absolute Eosinophils 0.3 10^3/uL (0-0.7); Absolute Lymphocytes 2.5 10^3/uL (1.2-3.4); Absolute Monocytes 0.6 10^3/uL (0.1-0.6); Hematocrit 36.5 % (39.0-52.0); Mean Corp Hgb Conc. 32.9 g/dL (33.0-37.0); Mean Corpuscular Hgb 31.3 pg (27.0-31.0); Mean Corpuscular Volume 95.1 fL (80.0-94.0); Mean Platelet Volume 10.1 fL (7.4-10.4); Nucleated Red Blood Cells % 0 % (-); Platelet Count 330 10^3/uL (130-400); Red Blood Cell Count 3.84 10^6/uL (4.70-6.10); White Blood Cell Count 7.4 10^3/uL (4.8-10.8)
[2024-04-11 06:03] LABS: Blood Urea Nitrogen 20 mg/dl (9-20); Calcium 9.3 mg/dl (8.4-10.2); Carbon Dioxide 28 mmol/L (22-30); Chloride 101 mmol/L (98-107); Estimated Creatinine Clearance 83 ml/min; Glucose 87 mg/dl (70-99); Potassium 4.3 mmol/L (3.5-5.1); Sodium 142 mmol/L (135-145); eGFR > 60.00
[2024-04-11 08:00] VITALS: BP 150/83
[2024-04-11] MEDS: PROTONIX IV 40 MG IV (08:24)
[2024-04-11] MEDS: NSS (PRESERVATIVE FREE) 10 ML IV (08:24)
--- NOTE | 2024-04-11 10:48 | W.PN.HOSP.TC ---
Today's Communication/Plan
-
Discharge today
Assessment / Plan
Assessment / Plan
Physical Exam
General: Not in acute distress
HEENT: Moist mucous membranes
Respiratory: Clear to Auscultation Bilaterally
Cardiac: S1/S2 and Regular Rhythm
GI: Surgical sutures C/D/I. Mild tenderness to palpation. Bowel sounds present.
Musculoskeletal: No Cyanosis and No Edema
Neuro: AO x 3
Assessment/Plan
Patient is a 63 y/o male with past medical history significant for hypertension who presents to ED complaining of sudden onset of abdominal pain.
Closed-loop small bowel obstruction status post exploratory laparotomy, lysis of adhesive omental band, tap block on 04/07/24
Elevated WBC/Tachycardia from recent surgery, pain and bowel obstruction
Nausea- RESOLVED
- Patient with no prior abdominal surgical history and CT findings seem most c/w closed loop obstruction.
- Diet advanced to regular -- patient is tolerating the regular diet
- NG tube discontinued on 04/09/24
- Surgery consulted, performed surgery shortly after admission given concern for ischemia
- Follow-up with Dr. Jm Harry of colorectal surgery in 2 to 4 weeks
Anemia, multifactorial due to acute blood loss and hemodilution
- Hgb stable
- Recheck CBC outpatient
Chills/Sweats - RESOLVED
- Brief episode overnight 04/07 to 04/08; no further concerning signs or symptoms
- No signs or symptoms of pneumonia/UTI
- Continue to monitor
Benign Hypertension
- Stable. BP mildly elevated in the ED - likely due to pain.
- Hold PO medications acutely.
- Low sodium diet
GERD
- Stable.
- Continue home PPI
Dyslipidemia
- Stable.
- Resume Aspirin and Statin
DVT Prophylaxis: Lovenox and SCDs.
Code Status: Full Code
More than 30 minutes spent in discharge including
Final examination of the patient
Summarizing hospital stay
Instructions for continuing care to all relevant caregivers
Preparation of discharge records, prescriptions, and referral forms
Total time spent (in minutes): 38
Anticipated Discharge: Today
Subjective/Interval History
-
Date of Service: April 11, 2024
Patient was seen and examined. He reported feeling good, he had a good bowel movement yesterday evening, he has been tolerating his diet, and he would like to go home today.
Objective Data
-
Labs:
Laboratory Results
04/11/24
04:34
WBC 7.4
Hgb 12.0 L
Hct 36.5 L
Plt Count 330
Sodium 142
Potassium 4.3
Chloride 101
Carbon Dioxide 28
BUN 20
Creatinine 0.9
Glucose 87
Calcium 9.3
Vital Signs:
Vital Signs
Temp Pulse Resp BP Pulse Ox
98.1 F 62 16 150/83 98
04/11/24 08:00 04/11/24 08:00 04/11/24 08:00 04/11/24 08:00 04/11/24 08:00
I&O
04/10/24 04/11/24 04/12/24
06:59 06:59 06:59
Intake Total 900 / 900 1919
Balance 900 / 900 1919
--- NOTE | 2024-04-11 11:18 | W.PN.CRS1 ---
Today's Communication / Plan
-
Okay for discharge from our perspective
Assessment/Plan
-
63-year-old male with PMH of HTN, HLD, asthma, calcium score of 965, who presents with 1 day of progressively worsening epigastric to substernal abdominal pain associated with nausea, no vomiting, no flatus or BMs since the pain started, and has
never happened before. His last colonoscopy was 2 years ago and had 2 small polyps removed (report not available to me). CT showing concerning for SBO due to closed loop obstruction
POD 4 exlap, LETI of omental band
AFVSS
WBC 7.4, hemoglobin 12.0
�Continue
- Regular diet; instructed to go slow and take small bites
�Continue pain control toradol, dilaudid PRN
�DVT PPx with Lovenox
� OOB/IS
� Appreciate hospitalist
-Okay for discharge from our perspective. All discharge instructions discussed with the patient. Follow-up with Dr. Harry in 2 weeks for a postoperative appointment.
Subjective Data
Subjective Data
Date of Service: April 11, 2024
Patient states he feels well. He has no nausea or vomiting. He is hungry. His pain is controlled.
Objective Data
-
Vital Signs
Temp Pulse Resp BP Pulse Ox
98.1 F 62 16 150/83 98
04/11/24 08:00 04/11/24 08:00 04/11/24 08:00 04/11/24 08:00 04/11/24 08:00
Intake & Output
04/10/24 04/11/24 04/12/24
06:59 06:59 06:59
Intake Total 900 / 900 1919
Balance 900 / 900 1919
Intake:
Oral fluids 600 / 600 1919
IV fluids (Total) 300 / 300 0 / 0
IV piggybacks 0 / 0
Other:
Number of approximated MODERATE 2 2
amounts of urine
Lab Results
04/11/24 04:34
04/11/24 04:34
Physical Exam
-
General: No Acute Distress and AOx3
Abdomen: Soft, Non Distended and Non Tender
Skin: Warm and Dry
Incision: Clear, Dry, Intact
--- NOTE | 2024-04-11 13:20 | W.DCSUMMARY ---
Discharge Summary
Discharge Data
Date of Admission: 04/07/24
Date of Discharge: 04/11/24
Total time spent discharging patient (in min): 38
-
Pending Results: No
Hospital Course
63 y/o male who presented with abdominal pain. Patient had an abdominal ultrasound, which showed, as per radiologist's impression, 'Contracted gallbladder. No evidence for cholelithiasis or bile duct dilatation.' Patient also had a CT
Abdomen/Pelvis, which showed, as per radiologist's impression, 'Small bowel obstruction with suspicion for closed loop obstruction in the right upper quadrant.' Colorectal surgery was consulted, and based on patient's clinical presentation, there
was concern for impending ischemia and therefore urgent surgery was performed. Patient had a chest x-ray as part of preoperative evaluation which showed low lung volumes/hypoaerated lungs (as per the radiologist's report). On 04/07/24, patient had
exploratory laparotomy, lysis of adhesive omental band (adhesive band from omentum to mesentery of mid jejunum causing a transition point across a loop of jejunum) and tap block. Patient was made NPO and nasogastric tube was placed. Patient's was
able to tolerate a diet within 2 to 3 days of his surgery. Patient was stable for discharge. Colorectal surgery stated patient could resume his home Aspirin on discharge.
Discharge Plan
-
Patient Disposition: Home (Routine Discharge)
Discharge Diagnosis/Procedures: Closed-loop small bowel obstruction status post exploratory laparotomy, lysis of adhesive omental band, tap block on 04/07/24
Leukocytosis/Tachycardia from recent surgery, pain and bowel obstruction
Nausea- RESOLVED
Anemia, multifactorial due to acute blood loss and hemodilution
Chills/Sweats - RESOLVED
Benign Hypertension
Gastroesophageal Reflux Disease
Dyslipidemia
Condition: Good
Diet: As tolerated, Regular and Low Sodium
Activity: No strenuous activity
Additional Activity: No lifting over 10 pounds (gallon of milk)
Driving Restrictions: No driving for 1 week
Blood Work: CBC, CMP and Magnesium within 3 to 7 days with your primary care provider's office
Wound Care: Allow glue to naturally fall off. Do not pick at incision.
Activity Restrictions/Additional Instructions:
With eating and drinking, go slow and take small bites.
Check your blood pressure at home at least twice a day.
Instructions: Checking your blood pressure at home
Referrals:
Jm Harry MD [Active] - in two weeks
Gallito Hill DO [Family Provider] - in less than 1 week
Additional Discharge Medication Instructions: Losartan on hold until outpatient follow-up soon with primary care provider.
Prescriptions:
Continued
esomeprazole magnesium [Nexium] 40 MG capsule,delayed release(DR/EC)
40 mg PO DAILY
finasteride [Propecia] 1 MG tablet
1 mg PO DAILY
aspirin 81 mg Tablet,Chewable
81 mg PO DAILY
rosuvastatin 20 mg Tablet
20 mg PO DAILY
Held
losartan 25 MG tablet
25 mg PO DAILY
Hold Instructions: Resume on 04/16/24. Check with your primary care provider when to resume this medication.
Discharge Orders:
Discharge Patient (As Directed); Ordered 04/11/24
Ordered By: Grayson Abbott
Discharge Date and Time
Discharge Date/Time: 04/11/24 15:36
Print Language: PAKIST[place]
[2024-04-11 14:45] VITALS: BP 148/82
== END 2024-04-11 15:36 | disposition home or self-care (01) | DRG 336 ==
LOC: 2 SOUTH 01:07
PROVIDERS: Clinical Nurse Specialist Family Health; Dentist General Practice; ADMITTING PHYSICIAN Hospitalist; ATTENDING PHYSICIAN Hospitalist; CONSULT PHYSICIAN Surgery; EMERGENCY PHYSICIAN Emergency Medicine; FAMILY PHYSICIAN Internal Medicine
PROC: 0DNA0ZZ Release Jejunum, Open Approach (ICD-10-PCS; 2024-04-07)
DX: K56.52 Intestinal adhesions [bands] with complete obstruction (principal); D62 Acute posthemorrhagic anemia; I10 Essential (primary) hypertension; J45.909 Unspecified asthma, uncomplicated; E78.00 Pure hypercholesterolemia, unspecified; D72.829 Elevated white blood cell count, unspecified; R00.0 Tachycardia, unspecified; K21.9 Gastro-esophageal reflux disease without esophagitis; Z79.82 Long term (current) use of aspirin; Z79.899 Other long term (current) drug therapy
CPT/HCPCS: 71045; 74177; 76700; 80048; 80053; 83605; 83690; 83735; 84484; 85025; 85027; 85610; 85730; 86803; 86850; 86900; 86901; 93005; 96361; 96374; 96375; 99285; C1776; Q9967